=== PATIENT | female | born 1990 | race Caucasian/White ===

== ENCOUNTER → 2016-09-23 | Outpatient (REF) | payer OTHER | LOC: M SFHCWAGY 10:59 | PROVIDERS: ATTEND Nurse Practitioner Women's Health | DX: Z12.4 Encounter for screening for malignant neoplasm of cervix (principal) ==

== ENCOUNTER → 2017-12-29 | Outpatient (REF) | payer OTHER | LOC: M SFHCWAGY 11:25 | DX: Z12.4 Encounter for screening for malignant neoplasm of cervix (principal) ==

== ENCOUNTER → 2020-04-23 | Outpatient (REF) | payer OTHER ==
[2020-04-23 17:30] LABS: HEMATOCRIT 39.8 % (36.0-47.0); HEMOGLOBIN 13.4 g/dl (12.0-15.5); MEAN CORPUSCULAR HGB CONC 33.7 g/dl (32.0-36.5); MEAN CORPUSCULAR VOLUME 89.2 fl (80.0-96.0); PLATELET COUNT, AUTOMATED 322 10^3/uL (150-450); RED BLOOD COUNT 4.46 10^6/uL (4.00-5.40)
[2020-04-23 18:50] LABS: HEPATITIS C VIRUS ABY INDEX < 0.0 INDEX (<0.8); HIV 1&2 SCREEN CENTAUR NEGATIVE (NEGATIVE)
[2020-04-23 19:07] LABS: CHLAMYDIA DNA AMPLIFICATION NEGATIVE (NEGATIVE); GC DNA AMPLIFICATION NEGATIVE (NEGATIVE)
== END ==
LOC: M PLALAB 15:33
PROVIDERS: ATTEND Obstetrics & Gynecology
DX: Z3A.08 8 weeks gestation of pregnancy (principal)

== ENCOUNTER → 2020-05-19 | Outpatient (REF) | payer OTHER | LOC: M PLALAB 12:32 | PROVIDERS: ATTEND Obstetrics & Gynecology | DX: Z34.81 Encounter for supervision of other normal pregnancy, first trimester (principal); Z3A.12 12 weeks gestation of pregnancy ==

== ENCOUNTER → 2020-05-21 | Outpatient (REF) | payer OTHER | LOC: M SFHCWAGY 17:02 | PROVIDERS: ATTEND Obstetrics & Gynecology | DX: Z34.91 Encounter for supervision of normal pregnancy, unspecified, first trimester (principal); Z3A.12 12 weeks gestation of pregnancy ==

== ENCOUNTER → 2020-07-17 | Outpatient (CLI) | payer OTHER ==
--- NOTE | 2020-07-17 13:55 | REP ---
INDICATION: ANATOMY. COMPARISON: None. TECHNIQUE: Real-time sonographic evaluation of the gravid uterus performed. FINDINGS: Estimated gestational age is20 weeks 1 day, EDC 12/03/2020. Today's measurements indicate appropriate growth. Presentation: Cephalic Placenta posterior, grade 0, without evidence of placenta previa. heart rate is recorded at 142 beats per minute. Amniotic fluid is subjectively normal. Closed cervical length is measured at 3.2 cm. Biometry chart: BPD: 49 mm, 20 weeks 6 days, 68th percentile. HC: 178 mm, 20 weeks 2 days, 54th percentile AC: 156 mm, 20 weeks 5 days, 64th percentile Femur length: 32 mm, 20 weeks 0 days, 47th percentile HC to AC ratio: 1.14, normal range 1.06-1.24. Estimated weight: 354g, 62nd percentile. anatomy: Cranium: Grossly normal Lateral Ventricles/Choroid Plexus: Grossly normal Posterior Fossa/Cerebellum: Grossly normal Nose/lips/profile: Grossly normal Four chamber heart: Grossly normal Right ventricular outflow tract: Grossly normal Left ventricular outflow tract: Grossly normal Left-sided stomach: Grossly normal Kidneys: Grossly normal Bladder: Grossly normal Cord Insertion: Grossly normal 3 vessel cord: Grossly normal Spine: Grossly normal IMPRESSION: Viable single intrauterine gestation as above. <Electronically signed by Santos Reyes > 07/17/20 [id number]
== END ==
LOC: M WHC 12:50
PROVIDERS: ATTEND Obstetrics & Gynecology
DX: Z34.02 Encounter for supervision of normal first pregnancy, second trimester (principal); Z3A.20 20 weeks gestation of pregnancy

== ENCOUNTER → 2020-08-14 | Outpatient (REF) | payer OTHER | LOC: M PLALAB 13:15 | PROVIDERS: ATTEND Obstetrics & Gynecology | DX: Z34.92 Encounter for supervision of normal pregnancy, unspecified, second trimester (principal); Z3A.24 24 weeks gestation of pregnancy ==

== ENCOUNTER → 2020-09-10 | Outpatient (REF) | payer OTHER ==
[2020-09-10 18:37] LABS: HEMATOCRIT 33.4 % (36.0-47.0); HEMOGLOBIN 10.9 g/dl (12.0-15.5); MEAN CORPUSCULAR HEMOGLOBIN 29.9 pg (27.0-33.0); MEAN CORPUSCULAR HGB CONC 32.6 g/dl (32.0-36.5); MEAN CORPUSCULAR VOLUME 91.8 fl (80.0-96.0); PLATELET COUNT, AUTOMATED 249 10^3/uL (150-450); RED BLOOD COUNT 3.64 10^6/uL (4.00-5.40); WHITE BLOOD COUNT 9.4 10^3/uL (4.0-10.0)
== END ==
LOC: M PLALAB 14:32
PROVIDERS: ATTEND Obstetrics & Gynecology
DX: Z36.89 Encounter for other specified antenatal screening (principal); Z3A.24 24 weeks gestation of pregnancy

== ENCOUNTER → 2020-09-11 | Outpatient (REF) | payer OTHER | LOC: M PLALAB 08:28 | PROVIDERS: ATTEND Obstetrics & Gynecology | DX: O99.810 Abnormal glucose complicating pregnancy (principal); Z3A.00 Weeks of gestation of pregnancy not specified ==

== ENCOUNTER → 2020-09-21 | Outpatient (CLI) | payer OTHER | LOC: M LAB 07:58 | PROVIDERS: ATTEND Obstetrics & Gynecology | DX: O99.810 Abnormal glucose complicating pregnancy (principal) ==

== ENCOUNTER → 2020-10-27 | Outpatient (CLI) | payer OTHER ==
--- NOTE | 2020-10-27 14:42 | REP ---
INDICATION: UTERINE SIZE DATE DISCREPANCY,GROWTH . COMPARISON: Comparison study July 17, 2020.. TECHNIQUE: Transabdominal obstetric sonography. FINDINGS: Scanning through the gravid uterus demonstrates a viable single intrauterine gestation in cephalic lie. motion is observed and heart rate is recorded at 130 beats per minute. A posterior placenta is seen, grade 2, without evidence of placenta previa. Closed cervical length is not measured due to head position. No extrauterine abnormality is observed. Amniotic fluid is subjectively normal. HUSSAIN normal 11.5 cm.. . Biometry chart: BPD 8.7 cm, 35 weeks 1 day Head circumference 31.3 cm, 35 weeks 0 days Abdominal circumference 30.8 cm, 34 weeks 5 days Femur length 6.4 cm, 33 weeks 0 days Humeral length 6.0 cm, 34 weeks 6 days HC AC ratio normal 1.01 Cephalic index normal 0.79 Estimated weight 2412 g, 5 lb 5 oz, 36 percentile for 34 weeks 5 days SD ratio in the umbilical cord artery by Doppler normal 2.84. IMPRESSION: Viable single intrauterine gestation at 34 weeks 4 days by today's composite sonographic criteria. PAUL by today's sonography December 04, 2020.. No complication identified. Expected gestational age estimate based on known PAUL December 03, 2020 is 34 weeks 5 days. Appropriate interval growth. <Electronically signed by Migue Spaulding > 10/27/20 [id number]
== END ==
LOC: M WHC 13:28
PROVIDERS: ATTEND Advanced Practice Midwife
DX: O26.843 Uterine size-date discrepancy, third trimester (principal)

== ENCOUNTER → 2020-11-05 | Outpatient (REF) | payer OTHER | LOC: M SFHCWAGY 10:03 | PROVIDERS: ATTEND Advanced Practice Midwife | DX: Z36.85 Encounter for antenatal screening for Streptococcus B (principal) ==

== ENCOUNTER 2020-12-03 01:11 | Inpatient (IN) | payer OTHER ==
[~2020-12-03] VITALS: Ht 170.2 cm; Wt 81.8 kg
[2020-12-03] MEDS ORDERED: OXYTOCIN INJ 10 UNITS/ML VIAL (J2590) As Ordered ONE (01:30)
[2020-12-03] MEDS ORDERED: LIDOCAINE 1% MDV 20ML VIAL As Ordered ONE ×2 (01:32→01:41)
[2020-12-03] MEDS ORDERED: OXYTOCIN 30 UNITS IN 0.9% NaCl 500ML IV BAG (J2590) As Ordered ONE (01:34)
[2020-12-03 02:09] VITALS: BP 129/79
[2020-12-03] MEDS ORDERED: OXYTOCIN INJ 10 UNITS/ML VIAL (J2590) IM PRN (02:10)
[2020-12-03] MEDS ORDERED: LIDOCAINE 1% MDV 20ML VIAL INFIL PRN (02:10)
[2020-12-03 02:25] VITALS: BP 132/85
[2020-12-03] MEDS ORDERED: DIBUCAINE 1% OINTMENT 30GM TOP PRN (02:25)
[2020-12-03] MEDS ORDERED: MEASLES,MUMPS,RUBELLA VACCINE INJ (MMR-II) (90707) SC SCH (02:25)
[2020-12-03] MEDS ORDERED: RHOGAM 300 MCG (1500 IU) INJ (J2790) IM SCH (02:25)
[2020-12-03] MEDS ORDERED: ACETAMINOPHEN 500 MG TAB PO PRN (02:25)
[2020-12-03] MEDS ORDERED: METHYLERGONOVINE MALEATE 0.2 MG TAB PO PRN (02:25)
[2020-12-03] MEDS ORDERED: IBUPROFEN 600MG TAB PO PRN (02:25)
[2020-12-03] MEDS ORDERED: DOCUSATE SODIUM 100MG CAPSULE PO PRN (02:25)
[2020-12-03 02:30] LABS: HEMATOCRIT 33.7 % (36.0-47.0); HEMOGLOBIN 11.1 g/dl (12.0-15.5); MEAN CORPUSCULAR HEMOGLOBIN 28.5 pg (27.0-33.0); MEAN CORPUSCULAR HGB CONC 32.9 g/dl (32.0-36.5); MEAN CORPUSCULAR VOLUME 86.6 fl (80.0-96.0); PLATELET COUNT, AUTOMATED 186 10^3/uL (150-450); RED BLOOD COUNT 3.89 10^6/uL (4.00-5.40); WHITE BLOOD COUNT 13.9 10^3/uL (4.0-10.0)
[2020-12-03 02:40] VITALS: BP 137/88
[2020-12-03] MEDS: ACETAMINOPHEN TAB 650MG DOSE (2X325MG) PO PRN ×2 (02:40→10:06)
[2020-12-03] MEDS: IBUPROFEN 800 MG TAB PO PRN ×2 (02:40→18:14)
--- NOTE | 2020-12-03 06:04 | HPE ---
HISTORY AND PHYSICAL DATE OF ADMISSION: 12/03/2020 HISTORY OF PRESENT ILLNESS: Vickie is a 29-year-old 1 para 0, 40 weeks gestation, EDC of 12/03/2020 based on last menstrual period and confirmed by first trimester ultrasound, presents to labor and delivery today with a report of onset of uncomfortable contractions at approximately 10:45 p.m. She reports her contractions are about every 2 to 3 minutes and she is feeling rectal pressure. She reports possible gush of fluid at 2300, some scant bloody show, the fetus has been active. Her care was [facility] at [facility] in the first trimester. course complicated by COVID positive on November 29, today is day #6 of her illness. She is currently asymptomatic other than the loss of taste or smell at this time. No cough. No respiratory distress. OBSTETRIC HISTORY: Primigravida. OBSTETRIC LABS: A positive, antibody screen negative, syphilis negative, gonorrhea and chlamydia negative. Hepatitis B surface antigen negative, hepatitis C antibody negative, HIV negative, rubella immune, gestational diabetic screening abnormal at 153. A three hour glucose tolerance test. Fasting 70, 1 hour 121, 2 hour 90 and 3 hour 83. Urine culture with no growth and GBS is negative. PAST MEDICAL HISTORY: Heavy irregular menstrual cycles and a history of one seizure as an early adolescent. PAST SURGICAL HISTORY: ACL reconstruction of the left knee. FAMILY HISTORY: Hypertension. SOCIAL HISTORY: The patient is . Her is at bedside and supportive. She is a nonsmoker. She denies alcohol and drug use. No history of any sexually transmitted infectious. She denies history of abuse, physical, sexual and emotional. ALLERGIES: Amoxicillin causes a rash. CURRENT MEDICATIONS: vitamin. OBJECTIVE: BP is 129/79, she does appear extremely uncomfortable with her contractions. No heart rate had been obtained. Patient reports rectal pressure. Upon entrance to the room, head . ASSESSMENT: Intrauterine at 40 weeks gestation, delivery imminent. PLAN: Admit the patient to Labor and Delivery, routine laboratories, regular diet, anticipate spontaneous vaginal delivery.
[2020-12-03 06:06] VITALS: BP 114/73
--- NOTE | 2020-12-03 06:33 | DN ---
DELIVERY NOTE DATE OF DELIVERY: 12/03/2020 TIME OF : GENDER: APGARS: LACERATIONS: ANESTHESIA: ESTIMATED BLOOD LOSS: COUNTS: DESCRIPTION OF DELIVERY: Vickie is a 29-year-old 1 para 1-0-0-1 now who was admitted to labor and delivery in active labor. She was completely dilated upon arrival, fully dilated at 0123. She pushed to a normal spontaneous vaginal delivery of a live male infant in OA position with restitution to ROT position at 0125. Shoulders delivered with gentle downward traction and the corpus immediately followed. The male's mouth and nares were bulb suctions. He was placed on the maternal abdomen crying and active. Cord was clamped times tow once pulsations ceased and cut by the father of the baby under my direction. Spontaneous expulsion of an intact placenta with three-vessel cord by Watkins mechanism at 0135. Uterine hemostasis achieved with Pitocin 10 units IM and uterine fundal massage. Estimated blood loss: 200 mL. Perineum and vagina were inspected and noted to have a bilateral labial laceration as well as a first-degree midline laceration. The lacerations were infiltrated with 1% lidocaine and repaired with 3-0 Vicryl Rapide in the usual fashion. [place] male weighed 3380 grams (7 pounds 7 ounces); Apgars were 8 and 9. Mom is going to formula feed and the family has named their son Martínez. At the close of delivery, lap counts, needle counts and instrument counts were correct and verified.
[2020-12-03] MEDS: PRENATAL VITAMINS CHEWABLE TABLET PO SCH (08:38)
[2020-12-03 18:00] VITALS: BP 126/86
[2020-12-04 06:00] VITALS: BP 118/72
[2020-12-04] MEDS: PRENATAL VITAMINS CHEWABLE TABLET PO SCH (08:31)
--- NOTE | 2020-12-04 08:54 | IPNPDOC ---
Text Note Date of Service The patient was seen on 12/04/20. NOTE PP #1 Feels well. Adequate pain management. Voiding. VSS, afebrile, normotensive Breasts soft Fundus firm, NT Lochia rubra light without odor Perineum intact PP #1, COVID + Routine care. Anticipate D/C in am VS,Fishbone, I+O VS, Fishbone, I+O Vital Signs Date Time Temp Pulse Resp B/P (MAP) Pulse Ox O2 Delivery O2 Flow Rate FiO2 12/04/20 06:00 97.0 52 18 118/72 (87) 98 Room Air Gail Coley CNM Dec 04, 2020 08:54
[2020-12-04] MEDS: IBUPROFEN 800 MG TAB PO PRN (14:06)
[2020-12-05] MEDS: PRENATAL VITAMINS CHEWABLE TABLET PO SCH (08:39)
--- NOTE | 2020-12-05 10:43 | IPNPDOC ---
Progress Note Date of Service: Dec 05, 2020 Progress Note SUBJECT: Status post . She has been ambulating, voiding spontaneously without issue and tolerating regular diet. Lochia decreasing/minimal. Pain is well-controlled. Denies headache, visual changes, right upper quadrant pain, shortness breath or chest pain. OBJECTIVE: VITAL SIGNS: Within normal limits, afebrile. Alert and oriented times three. Abdomen: Fundus firm at U-2. Soft, NTTP. ASSESSMENT: Status post uncomplicated spontaneous vaginal delivery. Vitals within normal limits, afebrile, hemodynamically stable with no evidence of infection. PLAN: Discharge to home today. Covid positive patient will be quarantined at home. Precautions have been reviewed Tylenol and Motrin for pain. Routine instructions/precautions reviewed. Routine PP visit in 6 weeks in clinic. VS, I&O, 24H, Fishbone Vital Signs/I&O Vital Signs Date Time Temp Pulse Resp B/P (MAP) Pulse Ox O2 Delivery O2 Flow Rate FiO2 12/04/20 06:00 97.0 52 18 118/72 (87) 98 Room Air TERESA HWANG DO Dec 05, 2020 10:43
== END 2020-12-05 13:45 | disposition home or self-care (01) | DRG 807 ==
LOC: M LDO 01:11 → M LDI 01:29 → M OBS 14:27
PROVIDERS: ADMIT Advanced Practice Midwife; ATTEND Advanced Practice Midwife
PROC: 10E0XZZ Delivery of Products of Conception, External Approach (ICD-10-PCS; principal; 2020-12-03)
PROC: 0HQ9XZZ Repair Perineum Skin, External Approach (ICD-10-PCS; 2020-12-03)
DX: O70.0 First degree perineal laceration during delivery (principal); Z3A.40 40 weeks gestation of pregnancy; Z37.0 Single live birth; Z86.16 Personal history of COVID-19

== ENCOUNTER → 2021-04-14 | Outpatient (REF) | payer OTHER | LOC: M SFHCWAGY 10:35 | PROVIDERS: ATTEND Advanced Practice Midwife | DX: Z12.4 Encounter for screening for malignant neoplasm of cervix (principal) ==

== ENCOUNTER → 2021-09-13 | Outpatient (REF) | payer OTHER ==
[2021-09-13 17:22] LABS: BASO # 0.1 10^3/uL (0.0-0.2); BASO % 1.1 % (0.0-1.0); EOS # 0.1 10^3/uL (0.0-0.5); EOS % 1.3 % (0.0-3.0); HEMOGLOBIN 14.1 g/dl (12.0-15.5); LYMPH # 2.5 10^3/uL (1.5-5.0); MEAN CORPUSCULAR HEMOGLOBIN 28.7 pg (27.0-33.0); MEAN CORPUSCULAR HGB CONC 33.6 g/dl (32.0-36.5); MEAN CORPUSCULAR VOLUME 85.4 fl (80.0-96.0); MONO # 0.6 10^3/uL (0.0-0.8); MONO % 7.9 % (2.0-8.0); NEUTROPHILS # 4.7 10^3/uL (1.5-8.5); NEUTROPHILS % 58.4 % (36.0-66.0); PLATELET COUNT, AUTOMATED 330 10^3/uL (150-450); RED BLOOD COUNT 4.92 10^6/uL (4.00-5.40)
[2021-09-13 17:32] LABS: ALT/SGPT 20 U/L (12-78); BILIRUBIN,TOTAL 0.5 MG/DL (0.2-1.0); BLOOD UREA NITROGEN 14 MG/DL (7-18); CALCIUM LEVEL 9.4 MG/DL (8.5-10.1); CARBON DIOXIDE LEVEL 25 MEQ/L (21-32); CHLORIDE LEVEL 109 MEQ/L (98-107); CREATININE FOR GFR 0.91 MG/DL (0.55-1.30); FREE T4 1.15 NG/DL (0.76-1.46); GLOMERULAR FILTRATION RATE > 60.0 (>60); GLUCOSE, FASTING 89 MG/DL (70-100); POTASSIUM SERUM 3.8 MEQ/L (3.5-5.1); SODIUM LEVEL 140 MEQ/L (136-145); TOTAL PROTEIN 7.8 GM/DL (6.4-8.2)
== END ==
LOC: M LAB REF 16:21
PROVIDERS: ATTEND Nurse Practitioner Adult Health
DX: Z00.00 Encounter for general adult medical examination without abnormal findings (principal)

== ENCOUNTER → 2022-07-28 | Outpatient (REF) | payer OTHER | LOC: M SFHCWAGY 08:47 | PROVIDERS: ATTEND Nurse Practitioner Family | DX: Z12.4 Encounter for screening for malignant neoplasm of cervix (principal) | CPT/HCPCS: 87624; G0123 ==

== ENCOUNTER → 2022-08-22 | Outpatient (CLI) | payer OTHER ==
[2022-08-22 17:22] LABS: BASO % 0.6 % (0.0-1.0); EOS # 0.2 10^3/uL (0.0-0.5); EOS % 3.6 % (0.0-3.0); LYMPH # 2.4 10^3/uL (1.5-5.0); LYMPH % 37.6 % (24.0-44.0); MEAN CORPUSCULAR HEMOGLOBIN 29.7 pg (27.0-33.0); MEAN CORPUSCULAR HGB CONC 34.1 g/dl (32.0-36.5); MEAN CORPUSCULAR VOLUME 86.9 fl (80.0-96.0); MONO # 0.6 10^3/uL (0.0-0.8); MONO % 8.8 % (2.0-8.0); NEUTROPHILS # 3.1 10^3/uL (1.5-8.5); NEUTROPHILS % 49.1 % (36.0-66.0); PLATELET COUNT, AUTOMATED 309 10^3/uL (150-450); RED BLOOD COUNT 4.72 10^6/uL (4.00-5.40); WHITE BLOOD COUNT 6.4 10^3/uL (4.0-10.0)
[2022-08-22 17:33] LABS: ALBUMIN 4.1 G/DL (3.2-5.2); ALKALINE PHOSPHATASE 73 U/L (46-116); ALT/SGPT 14 U/L (7.0-40); AST/SGOT 16 U/L (<34); BILIRUBIN,TOTAL 0.4 MG/DL (0.3-1.2); BLOOD UREA NITROGEN 13 MG/DL (9-23); CALCIUM LEVEL 9.4 MG/DL (8.5-10.1); CARBON DIOXIDE LEVEL 29 MMOL/L (20-31); CHLORIDE LEVEL 105 MMOL/L (98-107); CHOLESTEROL LEVEL 189 MG/DL (<200); CHOLESTEROL RISK RATIO 3.26 (<5); CREATININE FOR GFR 0.87 MG/DL (0.55-1.30); GLOMERULAR FILTRATION RATE > 60.0 (>60); GLUCOSE, FASTING 96 MG/DL (60-100); HDL CHOLESTEROL 57.9 MG/DL (>40); LDL CHOLESTEROL 106.9 MG/DL (<100); NON-HDL-C 131.1 MG/DL; SODIUM LEVEL 141 MMOL/L (136-145); TOTAL PROTEIN 7.4 G/DL (5.7-8.2); TRIGLYCERIDES LEVEL 121 MG/DL (<150)
[2022-08-22 17:34] LABS: THYROID STIMULATING HORMONE 2.017 uIU/ML (0.55-4.78)
[2022-08-22 17:36] LABS: FREE T4 1.24 NG/DL (0.89-1.76)
== END ==
LOC: M RAD 16:10
PROVIDERS: ATTEND Family Medicine
DX: Z13.29 Encounter for screening for other suspected endocrine disorder (principal); Z13.0 Encounter for screening for diseases of the blood and blood-forming organs and certain disorders involving the immune mechanism; Z13.220 Encounter for screening for lipoid disorders

== ENCOUNTER → 2023-09-01 | Outpatient (CLI) | payer OTHER ==
[2023-09-01 11:19] LABS: HEMATOCRIT 37.8 % (36.0-47.0); HEMOGLOBIN 12.6 g/dl (12.0-15.5); MEAN CORPUSCULAR HEMOGLOBIN 29.9 pg (27.0-33.0); MEAN CORPUSCULAR HGB CONC 33.3 g/dl (32.0-36.5); MEAN CORPUSCULAR VOLUME 89.8 fl (80.0-96.0); PLATELET COUNT, AUTOMATED 262 10^3/uL (150-450); RED BLOOD COUNT 4.21 10^6/uL (4.00-5.40); WHITE BLOOD COUNT 6.9 10^3/uL (4.0-10.0)
[2023-09-01 11:56] LABS: HIV 1&2 SCREEN NEGATIVE (NEGATIVE)
[2023-09-01 12:04] LABS: HEPATITIS C VIRUS ABY INDEX 0.02 INDEX (<0.8)
[2023-09-01 13:08] LABS: GC DNA AMPLIFICATION NEGATIVE (NEGATIVE)
== END ==
LOC: M PLALAB 07:35
PROVIDERS: ATTEND Advanced Practice Midwife
DX: Z34.81 Encounter for supervision of other normal pregnancy, first trimester (principal); Z3A.00 Weeks of gestation of pregnancy not specified

== ENCOUNTER → 2023-09-01 | Outpatient (CLI) | payer OTHER | LOC: M PLALAB 07:33 | PROVIDERS: ATTEND Obstetrics & Gynecology | DX: Z34.80 Encounter for supervision of other normal pregnancy, unspecified trimester (principal); Z3A.00 Weeks of gestation of pregnancy not specified ==

== ENCOUNTER → 2023-11-03 | Outpatient (CLI) | payer OTHER | LOC: M WHC 14:26 | PROVIDERS: ATTEND Obstetrics & Gynecology | DX: Z34.82 Encounter for supervision of other normal pregnancy, second trimester (principal) ==

== ENCOUNTER → 2023-12-15 | Outpatient (CLI) | payer OTHER ==
[2023-12-15 16:17] LABS: GLUCOSE CHALLENGE TEST 1 HOUR 111 MG/DL (LESS THAN 140)
[2023-12-15 16:52] LABS: HEPATITIS C VIRUS ABY INDEX 0.02 INDEX (<0.8)
== END ==
LOC: M PLALAB 11:10
PROVIDERS: ATTEND Obstetrics & Gynecology
DX: Z34.92 Encounter for supervision of normal pregnancy, unspecified, second trimester (principal)

== ENCOUNTER → 2024-02-26 | Outpatient (REF) | payer OTHER | LOC: M PLALAB 07:55 | PROVIDERS: ATTEND Obstetrics & Gynecology | DX: Z36.89 Encounter for other specified antenatal screening (principal); Z3A.36 36 weeks gestation of pregnancy ==

== ENCOUNTER 2024-03-20 04:34 | Inpatient (IN) | payer OTHER ==
[~2024-03-20] VITALS: Ht 170.2 cm; Wt 79.4 kg
[2024-03-20] VITALS (31 sets, daily range): BP systolic 104–134; BP diastolic 58–87; O2SAT 98
[2024-03-20] MEDS: LACTATED RINGER'S 1000 ML IV STA (04:57)
[2024-03-20] MEDS ORDERED: OXYTOCIN DRIP 30 UNITS in IV 1 EA IV PRN (05:00)
[2024-03-20] MEDS ORDERED: CARBOPROST TROMETHAMINE 250 MCG/ML AMP IM PRN (05:00)
[2024-03-20] MEDS ORDERED: TRANEXAMIC ACID INJection 1,000 MG in NS 100 ML IV PRN (05:00)
[2024-03-20] MEDS ORDERED: METHYLERGONOVINE MALEATE 0.2MG/ML 1ML VIAL IM PRN (05:00)
[2024-03-20] MEDS ORDERED: PREN1TAB11 PO (05:20)
[2024-03-20] MEDS ORDERED: HOME MED LIST COMPLETE! XX SCH (05:25)
[2024-03-20 05:36] LABS: HEMATOCRIT 32.6 % (36.0-47.0); HEMOGLOBIN 10.7 g/dl (12.0-15.5); MEAN CORPUSCULAR HGB CONC 32.8 g/dl (32.0-36.5); MEAN CORPUSCULAR VOLUME 82.3 fl (80.0-96.0); PLATELET COUNT, AUTOMATED 242 10^3/uL (150-450); RED BLOOD COUNT 3.96 10^6/uL (4.00-5.40); WHITE BLOOD COUNT 10.2 10^3/uL (4.0-10.0)
[2024-03-20] MEDS ORDERED: diphenhydrAMINE 50MG/ML VIAL IV PRN (06:00)
[2024-03-20] MEDS ORDERED: LR 500 ML IV PRN (06:00)
[2024-03-20] MEDS ORDERED: ePHEDrine SULFATE 25 MG/5 ML(5MG/ML) SYRINGE IVP PRN (06:00)
[2024-03-20] MEDS ORDERED: EPIDURAL/PCA KEYS XX PRN (06:00)
[2024-03-20] MEDS ORDERED: ONDANSETRON 4MG 2ML VIAL IV PRN (06:00)
[2024-03-20] MEDS ORDERED: NALOXONE INJ 0.4MG/1ML VIAL IV PRN (06:00)
[2024-03-20] MEDS: FENTANYL/ROPIVACAINE/NACL BAG 100 ML EPIDURAL SCH (06:13)
[2024-03-20 06:36] LABS: HEPATITIS C VIRUS ABY INDEX < 0.02 INDEX (<0.8)
[2024-03-20] MEDS: OXYTOCIN DRIP 30 UNITS in IV 1 EA IV PRN (10:30)
[2024-03-20] MEDS ORDERED: ACETAMINOPHEN 500 MG TAB PO PRN (10:50)
[2024-03-20] MEDS ORDERED: IBUPROFEN 600MG TAB PO PRN (10:50)
[2024-03-20] MEDS ORDERED: METHYLERGONOVINE MALEATE 0.2 MG TAB PO PRN (10:50)
[2024-03-20] MEDS ORDERED: DOCUSATE SODIUM 100MG CAPSULE PO PRN (10:50)
[2024-03-20] MEDS: IBUPROFEN 800 MG TAB PO PRN (17:53)
[2024-03-20] MEDS: DIBUCAINE 1% OINTMENT 30GM TOP PRN (19:37)
[2024-03-20] MEDS: ACETAMINOPHEN 325 MG TAB PO PRN (21:36)
[2024-03-21 05:49] VITALS: BP 105/53; O2SAT 98
[2024-03-21] MEDS: RHOGAM 300MCG (1500IU) INJ IM SCH (07:30)
[2024-03-21] MEDS: PRENATAL VITAMINS CHEWABLE TABLET PO SCH (07:49)
[2024-03-21] MEDS ORDERED: IBUP-1022 PO (11:34)
[2024-03-22] MEDS ORDERED: MEASLES,MUMPS,RUBELLA VACCINE INJ (MMR-II) SC.IMMUN ONE (09:00)
== END 2024-03-21 14:20 | disposition home or self-care (01) | DRG 807 ==
LOC: M LDO 04:34 → M LDI 04:55 → M OBS 12:45
PROVIDERS: ADMIT Obstetrics & Gynecology; ATTEND Advanced Practice Midwife
PROC: 10E0XZZ Delivery of Products of Conception, External Approach (ICD-10-PCS; principal; 2024-03-20)
PROC: 0HQ9XZZ Repair Perineum Skin, External Approach (ICD-10-PCS; 2024-03-20)
DX: O69.1XX0 Labor and delivery complicated by cord around neck, with compression, not applicable or unspecified (principal); Z37.0 Single live birth; Z3A.40 40 weeks gestation of pregnancy; O70.0 First degree perineal laceration during delivery